=== PATIENT | female | born 1995 | race Hispanic/Latino ===

== ENCOUNTER 2022-05-15 15:22 | Emergency (ER) | payer OTHER, SELFPAY ==
[2022-05-15 15:34] VITALS: BP 104/61; PULSE 57; RESP 16; TEMP 35.9; O2SAT 100
--- NOTE | 2022-05-15 15:57 | ED.LOWEXIN ---
HPI - Extremity Injury (Lower) General Chief Complaint: Extremity Injury, Lower Stated Complaint: Right Foot Pain Time Seen by Provider: 05/15/22 15:55 Source: patient, RN notes reviewed and old records reviewed Mode of arrival: ambulatory Limitations: no limitations History of Present Illness HPI Narrative: 26-year-old female presents to the [facility] with concerns over the 5th toenail right foot. States that Saturday she was dancing, wearing heels when someone stepped on her toe. When she got home noticed the toenail was lifted and there was some small amount of blood. no swelling or bruising noted. No subungual hematoma noted. Related Data Home Medications Medication Instructions Recorded Confirmed cholecalciferol (vitamin D3) 350 350 mcg PO DAILY 05/15/22 05/15/22 mcg (14,000 unit) capsule famotidine 20 mg tablet (Pepcid) 20 mg PO DAILY 05/15/22 05/15/22 [id number] < 1 1 pkg PO DAILY 05/15/22 05/15/22 mg-iron oral combo pack sertraline 50 mg tablet (Zoloft) 50 mg PO DAILY 05/15/22 05/15/22 Allergies Allergy/AdvReac Type Severity Reaction Status Date / Time morphine Allergy Rash Verified 05/15/22 15:32 Review of Systems Review of Systems: All systems reviewed & are unremarkable except as noted in HPI and below Constitutional: Constitutional: Reports no additional constitutional complaints Eyes: Eyes: Reports no additional eye complaints ENT: Reports system reviewed and no additional complaints, except as documented Cardiovascular: Cardiovascular: Reports no additional cardiovascular complaints, Denies chest pain and Denies dyspnea Respiratory: Respiratory: Reports no additional respiratory complaints, Denies chest congestion, Denies cough and Denies dyspnea Gastrointestinal: Gastrointestinal: Reports no additional gastrointestinal complaints, Denies abdominal pain, Denies nausea and Denies vomiting Musculoskeletal: Musculoskeletal: Reports as per HPI Integumentary/Breasts: Skin/Breast: Reports system reviewed and no additional complaints, except as docu Neurologic: Reports system reviewed and no additional complaints, except as documented Psychiatric: Psychiatric: Reports no additional psychiatric complaints Allergic/Immunologic: Allergic/Immunologic: Reports no additional allergic/immunologic complaints PMFSH Comments At the time of my signature, I reviewed and agree with the nursing past medical, surgical, social, and family history. There is no relevant family history pertinent to the patient complaint. Exam Const: General: cooperative, healthy appearing, comfortable, no acute distress, well developed, alert and well nourished Nutritional Appearance: well nourished Orientation/consciousness: patient oriented x3 Limitations: no limitations HENMT: Head: normal to inspection Ears: hearing grossly normal bilaterally and external ears normal Face/Nose/Sinus: Normal external nose present, Normal nares present, Normal nasal mucous membranes and turbinates present and normal facial exam Face and sinus: normal facial exam Eyes: General: appearance normal, both eyes and all related structures Alignment and Position: alignment normal Periorbital: periorbital findings normal Conjunctivae: conjunctivae normal Pupils: Equal, round and reactive pupils present EOM: EOMs intact bilaterally Neck: Neck: normal visual inspection, full ROM, no lymphadenopathy and no meningeal signs Chest: Chest palpation & inspection: normal inspection of the chest Resp: Effort & Inspection: normal respiratory effort and able to speak in complete sentences Auscultation: clear to auscultation bilaterally, no crackles, no rales, no rhonchi and no wheezes Cardio: Rate: regular rate Rhythm: regular rhythm Back/Spine/Pelvis: Cervical Spine: cervical ROM normal Thoracic/Lumbar Spine: No thoracic spinal tenderness Skin: General skin exam: normal color and no rashes or lesions noted Lesions: no
== END 2022-05-15 16:08 | disposition home or self-care (01) ==
PROVIDERS: Emergency Provider Nurse Practitioner
DX: S99.921A Unspecified injury of right foot, initial encounter (principal); W50.0XXA Accidental hit or strike by another person, initial encounter; Y93.41 Activity, dancing; Z98.84 Bariatric surgery status; N80.9 Endometriosis, unspecified
CPT/HCPCS: 99203; G0463

== ENCOUNTER → 2022-11-14 15:36 | Outpatient (CLI) | payer BC, OTHER, SELFPAY ==
--- NOTE | ~2022-11-14 | US_ITS ---
EXAMINATION: US transvaginal DATE: 11/14/2022 16:16 INDICATION: In vitro fertilization. TECHNIQUE: Multiple transvaginal sonographic images of the pelvis were obtained. COMPARISON: None. FINDINGS: The uterus measures 8.2 x 4.4 x 4.9 cm. There is no free fluid in the pelvis. The endometrial complex measures 3 mm in thickness. The right ovary measures 3.6 x 2.1 x 2.6 cm. There are 10 follicles fartun uring up to 7 mm. The left ovary measures 3.2 x 2.1 x 2.6 cm. There are 5 follicles measuring up to 7 mm. IMPRESSION: 1. Normal pelvis. Reviewed, dictated and finalized at location A. IMPRESSION: 1. Normal pelvis.
== END ==
DX: Z31.83 Encounter for assisted reproductive fertility procedure cycle (principal)
CPT/HCPCS: 76830